=== PATIENT | female | born 1990 | race Hispanic/Latino ===

== ENCOUNTER 2018-01-30 14:34 | Emergency (ER) | payer SELFPAY ==
--- NOTE | 2018-01-30 15:25 | EKG ---
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
[2018-01-30 15:50] LABS: Absolute Lymphocytes (CBC) 2.3 K/uL (0.7-4.9); Absolute Monocytes 0.7 K/uL (0.1-1.3); Absolute Neutrophil 3.9 K/uL (1.8-8.0); Basophils % 0.5 % (0-1.3); Eosinophils % 2.5 % (0-4.4); Hematocrit 38.7 % (36.0-45.0); Lymphocytes % 32.4 % (15.3-44.8); MCH 30.2 pg (27.0-35.0); MCV 87.7 fL (80-100); MPV 9.5 fL (7.6-11.3); Monocytes % 9.9 % (3.3-12.3); RBC Red Blood Cell Count 4.41 M/uL (3.86-4.86)
[2018-01-30 16:13] LABS: ALT/SGPT 18 U/L (12-78); AST/SGOT 18 U/L (15-37); Albumin 3.7 g/dL (3.4-5.0); Alkaline Phosphatase 87 U/L (45-117); BUN Blood Urea Nitrogen 19 mg/dL (7-18); Bicarbonate 27 mmol/L (21-32); Bilirubin Direct < 0.1 mg/dL (0-0.2); Bilirubin Total 0.2 mg/dL (0.2-1.0); Glucose Level 81 mg/dL (74-106); Lipase 64 U/L (73-393); Magnesium 2.3 mg/dL (1.8-2.4); Protein, Total 7.4 g/dL (6.4-8.2); Sodium Level 140 mmol/L (136-145); Troponin I < 0.02 ng/mL (0.0-0.045)
[2018-01-30] MEDS ORDERED: NA CHLORIDE 0.9% 1,000 ML ONE (16:19)
[2018-01-30] MEDS ORDERED: KETOROLAC 30 MG/ML INJ ONE (16:19)
[2018-01-30 16:39] LABS: Urine Blood 1+ (NEG); Urine Glucose NEGATIVE (NEG); Urine Protein NEGATIVE (NEG); Urine pH 5.5 (5.0-7.0)
--- NOTE | 2018-01-30 16:39 | RAD REPORT ---
EXAM DESCRIPTION: CT - Stone Protocol - 01/30/2018 4:30 pm CLINICAL HISTORY: Abdominal pain. Left flank pain COMPARISON: None. TECHNIQUE: Computed axial tomography of the abdomen pelvis was obtained without oral or IV contrast. Lack of IV and oral contrast limits evaluation of solid organs, bowel, and vessels. Coronal reformat karolina images were obtained and reviewed. All CT scans are performed using dose optimization technique as appropriate and may include automated exposure control or mA/KV adjustment according to patient size. FINDINGS: Images are degraded by respiratory motion artifact A renal calculus is not seen. An ureteral calculus is not noted. A bladder calculus is not present. The liver, spleen, pancreas and adrenals appear grossly normal There is no evidence of diverticulitis. The appendix appears normal The sigmoid colon extends into the right upper quadrant IMPRESSION: Negative for a genitourinary calculus
--- NOTE | 2018-01-30 16:56 | EDPHYS ---
Physician Documentation [facility] Name: Grisel Solano Age: 27 yrs Sex: Female : 1990 Arrival Date: 01/30/2018 Time: 14:37 Bed 24 Private MD: ED Physician Mike Tellez HPI: 01/30 15:10 This 27 yrs old Female presents to ER via Wheelchair with complaints of flank cp pain, dizziness. 15:10 The patient complains of pain in the left low back and left mid back. The pain does not cp radiate. Onset: The symptoms/episode began/occurred today. Associated signs and symptoms: Pertinent positives: dizziness, numbness and weakness to lower extremities, Pertinent negatives: diarrhea, dysuria, fever, vomiting. 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 - Social history:: Smoking status: Patient/guardian denies using tobacco. - Ebola Screening: : No symptoms or risks identified at this time. ROS: 15:15 Constitutional: Negative for body aches, chills, fever, poor PO intake. cp 15:15 Eyes: Negative for injury, pain, redness, and discharge. cp 15:15 ENT: Negative for drainage from ear(s), ear pain, sore throat, difficulty swallowing, difficulty handling secretions. 15:15 Neck: Negative for pain with movement, pain at rest, stiffness, tenderness, bony tenderness. 15:15 Cardiovascular: Negative for chest pain, edema, palpitations. 15:15 Respiratory: Negative for cough, shortness of breath, wheezing. 15:15 Abdomen/GI: Negative for abdominal pain, nausea, vomiting, and diarrhea, constipation, anorexia, black/tarry stool, rectal bleeding. 15:15 Back: Positive for pain at rest, flank pain, on the left, Negative for injury or acute deformity. 15:15 MS/extremity: Positive for paresthesias, of the right leg and left leg, Negative for injury or acute deformity, decreased range of motion, swelling. 15:15 Neuro: Positive for dizziness, bilateral leg weakness, Negative for altered mental status, headache, syncope, near syncope. 15:15 All other systems are negative. Exam: 15:30 Constitutional: The patient appears in no acute distress, alert, awake, non-toxic, well cp developed, well nourished. 15:30 Head/Face: Normocephalic, atraumatic. Eyes: Pupils equal round and reactive to light, cp extra-ocular motions intact. Lids and lashes normal. Conjunctiva and sclera are non-icteric and not injected. Cornea within normal limits. Periorbital areas with no swelling, redness, or edema. ENT: Nares patent. No nasal discharge, no septal abnormalities noted. Tympanic membranes are normal and external auditory canals are clear. Oropharynx with no redness, swelling, or masses, exudates, or evidence of obstruction, uvula midline. Mucous membranes moist. 15:30 Neck: External neck: is normal, ROM/movement: is normal, is supple, without pain, no range of motions limitations, no nuchal rigidity. 15:30 Chest/axilla: Inspection: normal, Palpation: is normal, no crepitus, no tenderness. 15:30 Cardiovascular: Rate: normal, Rhythm: regular, Pulses: Pulses are 2+ in right radial artery, right dorsalis pedis artery, left radial artery and left dorsalis pedis artery. Heart sounds: murmur, not appreciated, rub, not appreciated, gallop, not appreciated, Edema: is not appreciated. 15:30 Respiratory: the patient does not display signs of respiratory distress, Respirations: normal, no use of accessory muscles, no retractions, no splinting, no tachypnea, labored breathing, is not present, Breath sounds: are clear throughout, no decreased breath sounds, no stridor, no wheezing. 15:30 Abdomen/GI: Inspection: abdomen appears normal, Bowel sounds: active, all quadrants, Palpation: abdomen is soft and non-tender, in all quadrants. 15:30 Back: pain, that is moderate, of the left low back and left mid back, ROM is painful, Straight leg raises: of both lower extremities does not illicit pain. 15:30 Skin: cellulitis, is not appreciated, no rash present. 15:37 ECG was reviewed by the Attending Physician. Vital Signs: 14:40 BP 120 / 81; Pulse 73; Resp 16; Temp 97.8(TE); Pulse Ox 99% on R/A; Pain 8/10; hb 15:45 BP 116 / 77 Supine; Pulse 78; Resp 18; Pulse Ox 100% on R/A; mg2 15:45 BP 126 / 85 Sitting; Pulse 80; Resp 18; Pulse Ox 100% on R/A; mg2 15:45 BP 128 / 94 Standing; Pulse 85; Resp 18; Pulse Ox 100% on R/A; mg2 MDM: 14:54 Patient medically screened. cp 16:00 Differential diagnosis: pyelonephritis, UTI, spinal stenosis, dehydration, electrolyte cp abnormality, bulging disc. 16:54 Data reviewed: vital signs, nurses notes, lab test result(s), EKG, radiologic studies, cp CT scan. 16:54 Test interpretation: by ED physician or midlevel provider: ECG. Counseling: I had a cp detailed discussion with the patient and/or guardian regarding: the historical points, exam findings, and any diagnostic results supporting the discharge/admit diagnosis, lab results, radiology results, the need for outpatient follow up, a family practitioner, to return to the emergency department if symptoms worsen or persist or if there are any questions or concerns that arise at home. Response to treatment: the patient's symptoms have markedly improved after treatment, and as a result, I will discharge patient. 01/30 15:05 Order name: Basic Metabolic Panel; Complete Time: 16:42 01/30 16:42 Interpretation: Normal except: BUN 19. 01/30 15:05 Order name: CBC with Diff; Complete Time: 16:01 01/30 16:43 Interpretation: Reviewed. 01/30 15:05 Order name: Creatinine for Radiology; Complete Time: 16:42 01/30 15:05 Order name: Hepatic Function; Complete Time: 16:42 01/30 16:42 Interpretation: Normal except: GLOB 3.7; A/G 1.0. 01/30 15:05 Order name: Lipase; Complete Time: 16:42 01/30 15:05 Order name: Magnesium; Complete Time: 16:42 01/30 15:05 Order name: Orthostatics; Complete Time: 15:45 01/30 15:05 Order name: EKG; Complete Time: 15:06 01/30 15:05 Order name: Troponin I; Complete Time: 16:42 cp 01/30 16:01 Order name: Urine Dipstick--Ancillary (enter results); Complete Time: 16:42 bd 01/30 16:42 Interpretation: Normal except: UBLD 1+. cp 01/30 16:01 Order name: Urine --Ancillary (enter results); Complete Time: 16:42 bd 01/30 16:02 Order name: CT Stone Protocol; Complete Time: 16:42 cp 01/30 16:42 Interpretation: Report reviewed. cp 01/30 15:05 Order name: EKG - Nurse/Tech; Complete Time: 15:39 cp 01/30 15:05 Order name: Urine Dipstick-Ancillary (obtain specimen); Complete Time: 15:39 cp 01/30 15:05 Order name: Urine Test (obtain specimen); Complete Time: 15:39 cp 01/30 15:05 Order name: IV Saline Lock; Complete Time: 15:32 cp 01/30 15:05 Order name: Labs collected and sent; Complete Time: 15:39 cp EC:37 Rate is 77 beats/min. Rhythm is regular. WI interval is normal. QRS interval is normal. cp QT interval is normal. T waves are Inverted in lead III. Interpreted by me. Reviewed by me. Administered Medications: 16:16 Drug: TORadol 30 mg Route: IVP; Site: left antecubital; mg2 16:52 Follow up: Response: No adverse reaction mg2 16:16 Drug: NS 0.9% 1000 ml Route: IV; Rate: 1 bolus; Site: left antecubital; mg2 17:15 Follow up: Response: No adverse reaction; IV Status: Completed infusion mg2 Disposition: 01/30/18 16:55 Discharged to Home. Impression: Dizziness, Low back pain, Paresthesia of skin. - Condition is Stable. - Discharge Instructions: Back Pain, Adult, Dizziness, Paresthesia, Back Exercises, [id number]. - Prescriptions for Cyclobenzaprine 10 mg Oral Tablet - take 1 tablet by ORAL route every 8 hours As needed no driving while taking medication; 20 tablet. Medrol (Vasquez) 4 mg Oral Tablets, Dose Pack - take 1 tablet by ORAL route as directed - follow package instructions; 1 packet. - Medication Reconciliation Form, Thank You Letter, Antibiotic Education, Prescription Opioid Use, Work release form form. - Follow up: Private Physician; When: 1 - 2 days; Reason: Recheck today's complaints. - Problem is new. - Symptoms have improved. Signatures: Dispatcher [employer] EDMS Tereso Zamudio PA PA cp Alessia Camejo, EMMANUELLE RN Sven Simth RN RN mg2 Corrections: (The following items were deleted from the chart) 17:17 16:55 01/30/2018 16:55 Discharged to Home. Impression: Dizziness; Low back pain; mg2 Paresthesia of skin. Condition is Stable. Forms are Medication Reconciliation Form, Thank You Letter, Antibiotic Education, Prescription Opioid Use. Follow up: Private Physician; When: 1 - 2 days; Reason: Recheck today's complaints. Problem is new. Symptoms have improved. cp
--- NOTE | 2018-01-30 16:56 | ER ---
Nurse's Notes [facility] Name: Grisel Solano Age: 27 yrs Sex: Female : 1990 Arrival Date: 01/30/2018 Time: 14:37 Bed 24 Private MD: Diagnosis: Dizziness;Low back pain;Paresthesia of skin Presentation: 01/30 14:44 Presenting complaint: Patient states: Nausea, left flank pain, and dizziness since noon hb today. Denies fever/urinary s/s. Transition of care: patient was not received from another setting of care. Onset of symptoms was January 30, 2018 at 12:00. Risk Assessment: Do you want to hurt yourself or someone else? Patient reports no desire to harm self or others. Note Translated by Lali ID #[id number] at [employer]. Care prior to arrival: None. 14:44 Method Of Arrival: Wheelchair hb 14:44 Acuity: YUMIKO 3 hb 15:38 Initial Sepsis Screen: Does the patient meet any 2 criteria? No. Patient's initial mg2 sepsis screen is negative. Does the patient have a suspected source of infection? No. Patient's initial sepsis screen is negative. 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 - Social history:: Smoking status: Patient/guardian denies using tobacco. - Ebola Screening: : No symptoms or risks identified at this time. Screenin:36 Abuse screen: Denies threats or abuse. Denies injuries from another. Nutritional mg2 screening: No deficits noted. Tuberculosis screening: No symptoms or risk factors identified. Fall Risk IV access (20 points). Assessment: 15:36 General: Appears in no apparent distress. comfortable, Behavior is calm, cooperative. mg2 Pain: Complains of pain in lower back Pain does not radiate. Pain currently is 6 out of 10 on a pain scale. Quality of pain is described as aching, Pain began gradually. Neuro: Level of Consciousness is awake, alert, obeys commands, Oriented to person, place, time, situation. Cardiovascular: Capillary refill < 3 seconds Patient's skin is warm and dry. Respiratory: Airway is patent Respiratory effort is even, unlabored, Respiratory pattern is regular, symmetrical. GI: Abdomen is non-distended. : No signs and/or symptoms were reported regarding the genitourinary system. EENT: No signs and/or symptoms were reported regarding the EENT system. Derm: Skin is intact, Skin is pink, warm \T\ dry. normal. Musculoskeletal: Circulation, motion, and sensation intact. 17:17 Reassessment: Patient appears in no apparent distress at this time. mg2 Vital Signs: 14:40 BP 120 / 81; Pulse 73; Resp 16; Temp 97.8(TE); Pulse Ox 99% on R/A; Pain 8/10; hb 15:45 BP 116 / 77 Supine; Pulse 78; Resp 18; Pulse Ox 100% on R/A; mg2 15:45 BP 126 / 85 Sitting; Pulse 80; Resp 18; Pulse Ox 100% on R/A; mg2 15:45 BP 128 / 94 Standing; Pulse 85; Resp 18; Pulse Ox 100% on R/A; mg2 ED Course: 14:37 Patient arrived in ED. sb2 14:46 Triage completed. hb 14:46 Arm band placed on right wrist. hb 14:54 Tereso Zamudio PA is PHCP. cp 14:54 Mike Tellez MD is Attending Physician. cp 14:55 Sven Smith RN is Primary Nurse. mg2 15:00 TRANSLATED. mh5 15:19 EKG done, by lead injection mold technician. reviewed by Tereso FARAH. sm3 15:38 Patient has correct armband on for positive identification. Pulse ox on. NIBP on. Door mg2 closed. Warm blanket given. 15:38 Inserted saline lock: 20 gauge in left antecubital area, using aseptic technique. Blood mg2 collected. 16:09 Radiology exam delayed due to test not completed at this time. sj 16:30 CT Stone Protocol In Process Unspecified. EDMS 17:14 IV discontinued, intact, bleeding controlled, No redness/swelling at site. Pressure mg2 dressing applied. Administered Medications: 16:16 Drug: TORadol 30 mg Route: IVP; Site: left antecubital; mg2 16:52 Follow up: Response: No adverse reaction mg2 16:16 Drug: NS 0.9% 1000 ml Route: IV; Rate: 1 bolus; Site: left antecubital; mg2 17:15 Follow up: Response: No adverse reaction; IV Status: Completed infusion mg2 Outcome: 16:55 Discharge ordered by . cp 17:15 Discharged to home ambulatory, with family. mg2 17:15 Condition: stable 17:15 Discharge instructions given to patient, family, Instructed on discharge instructions, follow up and referral plans. Demonstrated understanding of instructions, follow-up care, medications, Prescriptions given X 2. 17:17 Patient left the ED. mg2 Signatures: Dispatcher [employer] Maira Knox Corey, GAGAN PA Alessia Vigil, EMMANUELLE RN Faby Brown 5 Emma Almonte2 Sven Smith RN RN mg2 Idalmis Lyon 3
== END 2018-01-30 17:17 | disposition home or self-care (01) ==
LOC: ER 14:34
DX: M54.5 Low back pain (principal); R20.2 Paresthesia of skin
CPT/HCPCS: 36415; 74176; 76377; 80048; 80076; 81003; 81025; 83690; 83735; 84484; 85025; 93005; 96361; 96374; 99284; J7030